=== PATIENT | male | born 1965 | race Caucasian/White ===

== ENCOUNTER 2020-12-11 05:44 | Day surgery (SDC) | payer OTHER ==
[2020-12-11] MEDS ORDERED: Lactated Ringers 1,000 ML IV SCH (06:30)
[2020-12-11] MEDS ORDERED: DIPRIVAN 200 MG/20 ML IV ONE ×2 (07:30→07:50)
[2020-12-11 08:36] VITALS: O2SAT 98
[2020-12-11 08:44] VITALS: BP 138/68; PULSE 68
--- NOTE | 2020-12-11 08:55 | OP ---
SURGERY DATE/TIME: 12/11/2020 0732 PREOPERATIVE DIAGNOSIS: Rectal bleeding. POSTOPERATIVE DIAGNOSIS: Internal and external hemorrhoids. PROCEDURE: Diagnostic colonoscopy. SURGEON: Agustin Marcelo M.D. ANESTHESIA: MAC by Lul Martin CRNA. ESTIMATED BLOOD LOSS: None. SPECIMENS: None. DESCRIPTION OF PROCEDURE: After informed written consent was obtained, the patient was taken to the endoscopy suite. He was placed in the left lateral decubitus position and anesthesia was titrated to the desired level of consciousness. A digital rectal exam showed significant external hemorrhoids and no other lesions. The scope was inserted into the rectum and sequentially the entire colonic mucosa was traversed. The level of cecum was reached and verified with direct visualization of the ileocecal valve. Upon withdrawal careful mucosal inspection revealed no gross abnormalities. There was liquid stool present throughout much of the colon which obstructed some view but was suctioned as much as possible. Prep was noted to be fair. Prior to withdrawal retroflexion was performed and showed small internal hemorrhoids, no active bleeding. The scope was removed and the patient was transferred to the recovery room in good condition.
== END 2020-12-11 08:45 | disposition home or self-care (01) ==
LOC: SDC 05:44
PROVIDERS: ATTEND Family Medicine
DX: K64.4 Residual hemorrhoidal skin tags (principal); K64.8 Other hemorrhoids; I10 Essential (primary) hypertension; Z79.899 Other long term (current) drug therapy
CPT/HCPCS: J2704